=== PATIENT | female | born 1975 | race African-American/Black ===

== ENCOUNTER 2018-07-24 15:20 | Emergency (ER) | payer MEDICARE, OTHER ==
[~2018-07-24] VITALS: Ht 167.6 cm; Wt 79.8 kg
[~2018-07-24 15:20] MED LIST: BENADRYL50 MG ORAL; IBUPROFEN600 MG PO; NKM; PREDNISONE20 MG ORAL; RANITIDINE HCL150 MG ORAL; TAMIFLU75 MG PO
[2018-07-24] MEDS ORDERED: NKM (15:49)
[2018-07-24 16:00] VITALS: BP 118/65
--- NOTE | 2018-07-24 16:08 | Emergency Room Report ---
History of Present Illness General Chief Complaint: Dyspnea/Respdistress Source: Patient Present Illness HPI 43-year-old female presents to the emergency department complaining of 9 out of 10 in severity chest pain with dyspnea since this morning. Patient reports progressive onset she reports her pain is exacerbated with inhalation. Patient states she recently had a chest GE performed with contrast on . She reports that procedure which she has had in the past did not feel consistent with previous experiences and reports having pain and cramping afterwards. Patient denies she states that both of her tubes or blocks. Patient denies fevers or chills. Patient reports pain started in the mid back and began radiating forward. Patient denies cough. She reports feeling short of breath she is not on any estrogen replacement denies recent travel. denies vaginal d/c, hematuria or dysuria. Allergies: Coded Allergies: LEVOTHYROXINE SODIUM (Unverified Allergy, Unknown, 03/09/14) METOCLOPRAMIDE (Verified Allergy, Unknown, 07/24/18) Patient History Past Medical History: see triage record Past Surgical History: none Pertinent Family History: none Last Menstrual Period: one week ago Now: No Reviewed Nursing Documentation: PMH: Agreed; PSxH: Agreed Nursing Documentation-PMH Past Medical History: No History, Except For Hx Cardiac Problems: No - Hypothyroidism Hx Hypertension: No Hx Pacemaker: No Hx Asthma: No Hx COPD: No Hx Diabetes: No Hx Cancer: No Hx Gastrointestinal Problems: No Hx Dialysis: No History Of Psychiatric Problem: No Hx Neurological Problems: No Hx Cerebrovascular Accident: No Hx Seizures: No Review of Systems All Other Systems: negative except mentioned in HPI Physical Exam Vital Signs Date Time Temp Pulse Resp B/P (MAP) Pulse Ox O2 Delivery O2 Flow Rate FiO2 07/24/18 15:34 97.2 70 16 131/72 100 Room Air 97.2 Sp02 EP Interpretation: reviewed, normal General Appearance: alert, GCS 15, non-toxic, mild distress Head: normocephalic, atraumatic Eyes: bilateral eye normal inspection, bilateral eye PERRL ENT: hearing grossly normal, normal voice Neck: full range of motion Respiratory: chest non-tender, lungs clear, normal breath sounds, no rhonchi, no respiratory distress, no wheezing, speaking full sentences Cardiovascular #1: regular rate, rhythm, normal capillary refill Gastrointestinal: normal bowel sounds, soft, no peritonitis, non-distended, no guarding, tenderness - mild epigastric ttp, no signs of peritonitis. Rectal: deferred Genitourinary: normal inspection, no CVA tenderness Musculoskeletal: back normal, gait/station normal, normal range of motion, non- tender Neurologic: alert, oriented x3, responsive, motor strength/tone normal, sensory intact, speech normal, grossly normal Psychiatric: judgement/insight normal Skin: normal color, no rash, warm/dry, well hydrated Medical Decision Making PA Attestation Dr. martinez is my supervising Physician whom patient management has been discussed with. Diagnostic Impression: Primary Impression: Dyspnea Qualified Codes: R06.00 - Dyspnea, unspecified Additional Impression: Abdominal pain Qualified Codes: R10.84 - Generalized abdominal pain ER Course 43-year-old female presents to the emergency department complaining of 9 out of 10 in severity chest pain with dyspnea since this morning. Patient reports progressive onset she reports her pain is exacerbated with inhalation. Patient states she recently had a chest GE performed with contrast on . She reports that procedure which she has had in the past did not feel consistent with previous experiences and reports having pain and cramping afterwards. Patient denies she states that both of her tubes or blocks. Patient denies fevers or chills. Patient reports pain started in the mid back and began radiating forward. Patient denies cough. She reports feeling short of breath she is not on any estrogen replacement denies recent travel. denies vaginal d/c, hematuria or dysuria. Ddx considered but are not limited to AL, pneumonia, contusion, costochondritis , PE, ACS, Shoulder strain, pneumomediastinum, abdominal free air, Chest wall contusion. aortic dissection. Vital signs: are WNL, pt. is afebrile H&PE are most consistent with suspicion for free air, or perforation from procedure performed on . Will also investigate cardiac or thrombus etiology. Pt. wells criteria of 0 so D-dimer is most appropriate first, will consider more advanced imaging accordingly based on results of labs, and pt.s appearance throughout ED visit. ORDERS: - EKG: NSR -CBC WNL -CMP: unremarkable -D-Dimer: WNL -Troponins: 0.00 CXR: unremarkable -KUB: Unremarkable ED INTERVENTIONS: - PT. placed on cardiac monitoring. - 02 ordered -IV Access and fluids are initiated. - Pt. offered pain medication- initially declines as she wasn't to know first what is causing her symptoms. - Ativan 0,5 PO- pt. declined. Pt reports her symptoms have improved. d/w pt. the results of her imaging and labwork. pt. vitals have been normal throughout her ED stay. -I do not identify an emergent condition at this time. With current presentation , pt. is stable for close outpatient follow up and conservative treatment. D/ w pt. to return promptly to ED with worsening or new symptoms.- Pt. verbalizes' understanding and agreement with proposed treatment plan.proposed treatment plan. Patient is given strict ED return precautions. DISCHARGE: At this time pt. is stable for d/c to home. Will provide printed patient care instructions, and any necessary prescriptions. Care plan and follow up instructions have been discussed with the patient prior to discharge. Labs Test 07/24/18 15:20 White Blood Count 5.9 K/UL (4.8-10.8) Red Blood Count 5.12 M/UL (4.20-5.40) Hemoglobin 13.8 G/DL (12.0-16.0) Hematocrit 42.7 % (37.0-47.0) Mean Corpuscular Volume 84 FL (80-99) Mean Corpuscular Hemoglobin 27.0 PG (27.0-31.0) Mean Corpuscular Hemoglobin Concent 32.3 G/DL (32.0-36.0) Red Cell Distribution Width 16.1 % (11.6-14.8) Platelet Count 537 K/UL (150-450) Mean Platelet Volume 7.2 FL (6.5-10.1) Neutrophils (%) (Auto) 59.4 % (45.0-75.0) Lymphocytes (%) (Auto) 32.5 % (20.0-45.0) Monocytes (%) (Auto) 4.0 % (1.0-10.0) Eosinophils (%) (Auto) 1.5 % (0.0-3.0) Basophils (%) (Auto) 2.6 % (0.0-2.0) D-Dimer 0.19 mg/L FEU (0.00-0.49) Sodium Level 136 MMOL/L (136-145) Potassium Level 5.1 MMOL/L (3.5-5.1) Chloride Level 100 MMOL/L (98-107) Carbon Dioxide Level 25 MMOL/L (21-32) Anion Gap 11 mmol/L (5-15) Blood Urea Nitrogen 7 mg/dL (7-18) Creatinine 0.8 MG/DL (0.55-1.30) Estimat Glomerular Filtration Rate > 60 mL/min (>60) Glucose Level 97 MG/DL (74-106) Calcium Level 9.7 MG/DL (8.5-10.1) Total Bilirubin 1.0 MG/DL (0.2-1.0) Aspartate Amino Transf (AST/SGOT) 33 U/L (15-37) Alanine Aminotransferase (ALT/SGPT) 22 U/L (12-78) Alkaline Phosphatase 92 U/L (46-116) Total Creatine Kinase 143 U/L (26-308) Troponin I 0.000 ng/mL (0.000-0.056) Total Protein 8.9 G/DL (6.4-8.2) Albumin 4.2 G/DL (3.4-5.0) Globulin 4.7 g/dL Albumin/Globulin Ratio 0.9 (1.0-2.7) EKG Diagnostic Results EP Interpretation: Dr. Friend Rate: normal - 68 bpm Rhythm: NSR ST Segments: no acute changes ASA given to the pt in ED: No PA Scribe Text This Interpretation was scribed by TONEY Wiggins. Chest X-Ray Diagnostic Results Chest X-Ray Diagnostic Results : Chest X-Ray Ordered: Yes # of Views/Limited/Complete: 1 View Indication: Shortness of Breath EP Interpretation: Yes PA Xray: Interpretation reviewed, by supervising MD, and agrees with findings. Interpretation: no consolidation, no effusion, no pneumothorax, no acute cardiopulmonary disease Impression: No acute disease Electronically Signed by: Rita Wiggins PA-C Other X-Ray Diagnostic Results Other X-Ray Diagnostic Results : X-Ray ordered: abdominal KUB # of Views/Limited Vs Complete: 1 View Indication: Pain EP Interpretation: Yes TONEY Xray: Interpretation reviewed, by supervising MD, and agrees with findings. Interpretation: no soft tissue swelling, nonspecific bowel gas Impression: No acute disease Electronically Signed by: Rita Wiggins PA-C Last Vital Signs Date Time Temp Pulse Resp B/P (MAP) Pulse Ox O2 Delivery O2 Flow Rate FiO2 07/24/18 15:34 97.2 70 16 131/72 100 Room Air 97.2 Disposition: HOME, SELF-CARE Condition: Stable Scripts Acetaminophen* (TYLENOL EXTRA STRENGTH*) 500 Mg Tablet 500 MG ORAL Q6H, #20 TAB 0 Refills Prov: Rita Wiggins 07/24/18 Simethicone (Simethicone) 80 Mg Tab.chew 80 MG PO BID, #20 TAB Prov: Rita Wiggins 07/24/18 Patient Instructions: Shortness of Breath, [id number] Additional Instructions: Take medications as directed. Follow up with a Primary Care Provider in 3-5 days, even if your symptoms have resolved. --Please review list of primary care clinics, if you do not already have a primary care provider Return sooner to ED if new symptoms occur, or current symptoms become worse. - Please note that this Emergency Department Report was dictated using [employer] geographer technology software, occasionally this can lead to erroneous entry secondary to interpretation by the dictation equipment. Rita Wiggins Jul 24, 2018 16:08
[2018-07-24 17:00] VITALS: BP 111/59
[2018-07-24 17:05] LABS: ANION GAP 11 mmol/L (5-15); BLOOD UREA NITROGEN 7 mg/dL (7-18); CALCIUM 9.7 MG/DL (8.5-10.1); CARBON DIOXIDE 25 MMOL/L (21-32); CHLORIDE 100 MMOL/L (98-107); CREATININE 0.8 MG/DL (0.55-1.30); POTASSIUM 5.1 MMOL/L (3.5-5.1); SODIUM 136 MMOL/L (136-145)
--- NOTE | 2018-07-24 17:05 | Diagnostic Imaging Report ---
EXAM: XR Chest, 1 View CLINICAL HISTORY: PAIN TECHNIQUE: Frontal view of the chest. COMPARISON: Chest x-ray 03/09/14 FINDINGS: Lungs: Unremarkable. No consolidation. Pleural space: Unremarkable. No pneumothorax. Heart: Unremarkable. No cardiomegaly. Mediastinum: Unremarkable. Bones/joints: Unremarkable. IMPRESSION: Normal chest x-ray.
[2018-07-24 17:10] LABS: ALANINE AMINOTRANSFERASE 22 U/L (12-78); ALBUMIN 4.2 G/DL (3.4-5.0); ALBUMIN/GLOBULIN RATIO 0.9 (1.0-2.7); ALKALINE PHOSPHATASE 92 U/L (46-116); ASPARTATE AMINO TRANSFERASE 33 U/L (15-37); CREATINE KINASE 143 U/L (26-308)
[2018-07-24 17:16] LABS: BASOPHILS % (AUTO) 2.6 % (0.0-2.0); EOSINOPHILS % (AUTO) 1.5 % (0.0-3.0); HEMATOCRIT 42.7 % (37.0-47.0); HEMOGLOBIN 13.8 G/DL (12.0-16.0); LYMPHOCYTES % (AUTO) 32.5 % (20.0-45.0); MEAN CORPUSCULAR VOLUME 84 FL (80-99); NEUTROPHILS % (AUTO) 59.4 % (45.0-75.0); PLATELET COUNT 537 K/UL (150-450); RED BLOOD COUNT 5.12 M/UL (4.20-5.40); RED CELL DISTRIBUTION WIDTH 16.1 % (11.6-14.8); WHITE BLOOD COUNT 5.9 K/UL (4.8-10.8)
[2018-07-24] MEDS ORDERED: LORazepam 0.5mg tab ORAL ONE (17:30)
[2018-07-24] MEDS ORDERED: Sodium Chloride 500ML 500 ML IV ONE (17:45)
[2018-07-24 18:00] VITALS: BP 99/49
--- NOTE | 2018-07-24 18:00 | Diagnostic Imaging Report ---
EXAM: XR Abdomen, 2 Views CLINICAL HISTORY: PAIN TECHNIQUE: Frontal view of the abdomen/pelvis with upright view of the abdomen. COMPARISON: No relevant prior studies available. FINDINGS: Intraperitoneal space: No free air. Gastrointestinal tract: Unremarkable. No dilation. Bones/joints: Unremarkable. IMPRESSION: Normal abdominal x-rays.
[2018-07-24] MEDS ORDERED: SIMETHICONE80 M1 PO (18:22)
[2018-07-24] MEDS ORDERED: TYLENOL EXTRA500 MG ORAL (18:22)
[2018-07-24 18:25] VITALS: BP 99/49
== END 2018-07-24 18:45 | disposition home or self-care (01) ==
LOC: EMR 15:59
DX: R06.00 Dyspnea, unspecified (principal); R10.84 Generalized abdominal pain; R07.89 Other chest pain; E03.9 Hypothyroidism, unspecified; Z88.8 Allergy status to other drugs, medicaments and biological substances
CPT/HCPCS: 36415; 71045; 74018; 80053; 82550; 84484; 85025; 85379; 93005; 99284